=== PATIENT | male | born 1995 | race Caucasian/White ===

== ENCOUNTER 2019-06-10 19:23 | Emergency (ER) | payer SELFPAY ==
[2019-06-10] VITALS (7 sets, daily range): BP systolic 134–166; BP diastolic 79–117; PULSE 71–108; RESP 11–26; TEMP 36.9; O2SAT 95–100; BMI 28.8
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
[2019-06-10] MEDS: Diphth,Pertuss(Acell),Tet Vac 0.5 ML Vial IM (21:08)
[2019-06-10] MEDS: Morphine 4 MG/ML Syringe IV ×2 (21:08→22:38)
[2019-06-10 21:18] LABS: Absolute Lymphocyte Count 1.65 X10^3/uL (0.83-4.51); Absolute Neutrophil Count 27.5 X10^3/uL (2.0-7.7); Basophil# 0.07 X10^3/uL; Basophil% 0.2 % (0-1); Eosinophil# 0.02 X10^3/uL; Eosinophils% 0.1 % (0-5); Hematocrit 45.2 % (40-54); Hemoglobin 15.3 g/dL (13.0-16.5); Lymphocyte # 1.65 X10^3/ul (4.0); Lymphocyte % 5.1 % (19-41); Mean Corp Hgb Conc 33.8 g/dL (32-36); Mean Corpuscular Hgb 30.8 pg (27.0-32.0); Mean Corpuscular Volume 91.1 fL (80-94); Mean Platelet Vol. 9.1 fl (6.2-12.0); Monocyte# 2.68 X10^3/uL; Monocyte% 8.3 % (0-10); NRBC Flagged by Analyzer 0 % (0-5); Neutrophil # 27.52 X10^3/uL (2.7-7.7); Neutrophil % 85.4 % (47-70); POSITIVE COUNT YES; POSITIVE DIFFERENTIAL YES; Platelet Count 288 K/mm3 (150-450); RBC Distribution Width CV 11.7 % (11.6-14.6); RBC Distribution Width SD 39.3 fl (35.1-43.9); Red Blood Count 4.96 M/mm3 (4.6-6.2)
[2019-06-10 21:19] LABS: Differential Indicated SCAN CRITERIA MET
[2019-06-10 21:20] LABS: White Blood Count 32.2 K/mm3 (4.4-11.0)
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
--- NOTE | 2019-06-10 21:23 | ED.RN ---
LAB CALLED WITH CRITICAL LAB RESULTS. WBC 32.2. DR. HALE MADE AWARE NO NEW ORDERS AT THIS TIME
[2019-06-10 21:31] LABS: Anion Gap 7 (5-15); BUN 15 mg/dL (7-18); BUN/Creat Ratio 13.3 RATIO (10-20); Calcium,Total 9.1 mg/dL (8.5-10.1); Chloride 108 mmol/L (98-107); Creatinine, Serum 1.13 mg/dL (0.70-1.30); EST Glomerular Filtration Rate 85 mL/min (>60); Est Glom Filt Rate - Afr Amer 103 mL/min (>60); Estimated Creatinine Clearance 104.98 ml/min; Glucose 130 mg/dL (74-106); Potassium 3.8 mmol/L (3.5-5.1); Sodium Level 142 mmol/L (136-145)
[2019-06-10 21:43] LABS: Anisocytosis RARE; Differential Comment SEE COMMENTS; Macrocytosis RARE; Platelet Estimate ADEQUATE (ADEQ)
[2019-06-10] MEDS: Propofol 200 MG/20 ML Vial IV BOLUS (23:17)
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
[2019-06-11] MEDS: oxyCODONE 5 MG Tablet 10 MG PO (01:24)
[2019-06-11 01:26] VITALS: PULSE 102; RESP 16; O2SAT 100
[2019-06-12 15:41] LABS: Pathologist Review Reviewed
== END 2019-06-11 01:26 | disposition home or self-care (01) ==
PROVIDERS: Emergency Provider Emergency Medicine
DX: S43.015A Anterior dislocation of left humerus, initial encounter (principal); S51.812A Laceration without foreign body of left forearm, initial encounter; S42.292A Other displaced fracture of upper end of left humerus, initial encounter for closed fracture; V23.4XXA Motorcycle driver injured in collision with car, pick-up truck or van in traffic accident, initial encounter; Y92.410 Unspecified street and highway as the place of occurrence of the external cause; Y93.55 Activity, bike riding; M51.36 Other intervertebral disc degeneration, lumbar region
CPT/HCPCS: 71045; 72170; 73030; 73060; 73200; 73590; 74176; 80048; 85025; 90471; 90715; 96374; 96375; 99152; 99285; J7030; A4216

== ENCOUNTER → 2019-11-29 15:44 | Outpatient (CLI) | payer MEDICAID, SELFPAY ==
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
[2019-11-29 13:04] VITALS: BMI 28.8
== END ==
PROVIDERS: PCP Family Medicine; Referring Provider Surgery; Visit Provider Surgery
DX: Z30.2 Encounter for sterilization (principal)
CPT/HCPCS: 88302

== ENCOUNTER → 2021-04-29 17:24 | Outpatient (CLI) | payer MEDICAID, SELFPAY ==
[2019-11-29 13:04] VITALS: BMI 28.8
== END ==
PROVIDERS: PCP Family Medicine; Visit Provider Family Medicine
DX: J02.9 Acute pharyngitis, unspecified (principal)
CPT/HCPCS: 87070

== ENCOUNTER 2024-04-24 21:43 | Emergency (ER) | payer OTHER, SELFPAY ==
[2024-04-24 21:43] VITALS: BP 139/107; PULSE 100; RESP 16; TEMP 36.7; O2SAT 98; BMI 35.0
[2024-04-25 01:43] VITALS: PULSE 88; RESP 14; O2SAT 100
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
[2024-04-25 03:23] VITALS: BP 132/71; PULSE 74; RESP 16; TEMP 36.3; O2SAT 99
== END 2024-04-25 03:24 | disposition home or self-care (01) ==
PROVIDERS: Emergency Provider Emergency Medicine; PCP Family Medicine; Visit Provider Emergency Medicine
DX: S16.1XXA Strain of muscle, fascia and tendon at neck level, initial encounter (principal); F41.9 Anxiety disorder, unspecified; F17.290 Nicotine dependence, other tobacco product, uncomplicated; R51.9 Headache, unspecified; V43.52XA Car driver injured in collision with other type car in traffic accident, initial encounter
CPT/HCPCS: 70450; 72125; 99282